=== PATIENT | female | born 1970 | race Caucasian/White ===

== ENCOUNTER 2018-08-17 06:07 | Emergency (ER) | payer MEDICAID ==
[~2018-08-17] VITALS: Ht 170.2 cm; Wt 49.9 kg
[2018-08-17 06:09] VITALS: BP 120/73
--- NOTE | 2018-08-17 06:09 | NUR ---
ED Nurse Note: Pt was BIBA from home, c/o short of breath with sever dry cough since last night. According to EMS, they gived one dose of Albuteral breathing treatment on the way coming to ED. Pt is A/O X 4. Bp 118/65, Hr 105, O2 sat 94% on room air, waiting for orders.
[2018-08-17 06:41] VITALS: BP 118/65
--- NOTE | 2018-08-17 06:50 | NUR ---
ED Nurse Note: EKG done at bed side. waiting for X-ray. Pt is A/O X4. VSS.
--- NOTE | 2018-08-17 07:35 | NUR ---
ED Nurse Note: Blood collected and sent to Lab.
[2018-08-17 07:48] LABS: HEMATOCRIT 46.8 % (37.0-47.0); HEMOGLOBIN 16.8 G/DL (12.0-16.0); MEAN CORPUSCULAR VOLUME 86 FL (80-99); PLATELET COUNT 166 K/UL (150-450); RED BLOOD COUNT 5.44 M/UL (4.20-5.40); RED CELL DISTRIBUTION WIDTH 11.3 % (11.6-14.8); WHITE BLOOD COUNT 6.4 K/UL (4.8-10.8)
[2018-08-17 08:01] LABS: ANION GAP 11 mmol/L (5-15); BLOOD UREA NITROGEN 10 mg/dL (7-18); CALCIUM 9.8 MG/DL (8.5-10.1); CARBON DIOXIDE 30 MMOL/L (21-32); CHLORIDE 105 MMOL/L (98-107); CREATININE 0.9 MG/DL (0.55-1.30); POTASSIUM 3.6 MMOL/L (3.5-5.1); SODIUM 145 MMOL/L (136-145)
--- NOTE | 2018-08-17 08:06 | NUR ---
HAND-OFF: Report given to Darlyn/RN for continue care. Pt is A/OX4. VSS.
--- NOTE | 2018-08-17 08:07 | NUR ---
ED Nurse Note: resumed care pt sleeping vss will monitor.
[2018-08-17 08:14] LABS: ALANINE AMINOTRANSFERASE 23 U/L (12-78); ALBUMIN 5.1 G/DL (3.4-5.0); ALBUMIN/GLOBULIN RATIO 1.8 (1.0-2.7); ALKALINE PHOSPHATASE 99 U/L (46-116); ASPARTATE AMINO TRANSFERASE 17 U/L (15-37); BILIRUBIN,TOTAL 0.6 MG/DL (0.2-1.0); CKMB 1.2 NG/ML (0.0-3.6); CREATINE KINASE 98 U/L (26-308)
--- NOTE | 2018-08-17 08:30 | Diagnostic Imaging Report ---
Indication: Shortness of breath, cough Technique: 2 portable frontal views were obtained of the chest (a second view is obtained to include the right costophrenic sulcus) Comparison: None Findings: Asymmetric haziness of the midlungs bilaterally which is likely artifactual related to attenuation from overlying soft tissue/breast. There is mild hyperinflation. There is no definite focal airspace consolidation. There is equivocal minimal blunting of the right costophrenic sulcus. This may be related to artifact however the possibility of a trace effusion not excluded. No evidence of pneumothorax. A rounded density projects over the left midlung on one of the submitted views which may represent a nipple shadow. No acute osseous abnormality. Impression: * Mild hyperinflation, nonspecific. Small airway disease (bronchitis) or asthma can be considered in the appropriate clinical setting. * No definite focal airspace consolidation. * Question minimal blunting of the right costophrenic sulcus, artifact versus trace effusion. * Rounded density projecting over the left mid lung on one of the submitted views which may be related to a nipple shadow. Follow-up repeat exam with nipple markers can be obtained for more definitive assessment.
[2018-08-17] MEDS ORDERED: ALBUTEROL SULF8.5 GM INH (08:42)
[2018-08-17] MEDS ORDERED: ZITHROMAX250 MG ORAL (08:42)
[2018-08-17] MEDS ORDERED: FLOVENT2 PUFF1 INH (08:43)
--- NOTE | 2018-08-17 09:03 | Emergency Room Report ---
History of Present Illness General Chief Complaint: Upper Respiratory Illness Source: Patient Present Illness HPI Patient presents to the emergency department today complaining of cough and shortness of breath. Patient states that she began to feel short of breath last night associate with a cough and this morning got severe and she had a call 911. Paramedics arrived and gave her albuterol nebulizer and she seemed to improve on arrival she was feeling much better. She states that she is never had asthma before denies any fever nausea vomiting diarrhea chills. . She denies any leg pain leg swelling. No history of pulmonary embolism. Denies any alcohol drug or tobacco use. Symptoms noted to be severe. Which is why she called 911. No other modifying factors. No other associated signs and symptoms. No other complaints were noted. Allergies: Coded Allergies: No Known Allergies (Unverified , 08/17/18) Patient History Past Medical History: none Past Surgical History: none Pertinent Family History: none Social History: Denies: smoking, alcohol use, drug use Reviewed Nursing Documentation: PMH: Agreed; PSxH: Agreed Nursing Documentation-PMH Past Medical History: No Stated History Review of Systems All Other Systems: negative except mentioned in HPI Physical Exam Vital Signs Date Time Temp Pulse Resp B/P (MAP) Pulse Ox O2 Delivery O2 Flow Rate FiO2 08/17/18 06:06 98.2 106 18 121/75 (90) 91 Room Air Sp02 EP Interpretation: reviewed, normal General Appearance: normal inspection, well appearing, no apparent distress, alert Head: atraumatic Eyes: bilateral eye normal inspection ENT: normal ENT inspection, hearing grossly normal, normal voice Neck: normal inspection, full range of motion, supple, no bony tend Respiratory: normal inspection, lungs clear, normal breath sounds, no respiratory distress, no retraction, no wheezing Cardiovascular #1: regular rate, rhythm, no edema Gastrointestinal: normal inspection, normal bowel sounds, non tender, soft, no guarding, no hernia Genitourinary: no CVA tenderness Musculoskeletal: normal inspection, back normal, normal range of motion Neurologic: normal inspection, alert, responsive, speech normal Psychiatric: normal inspection, judgement/insight normal, mood/affect normal Skin: normal inspection, normal color, no rash Medical Decision Making Diagnostic Impression: Primary Impression: Bronchitis Additional Impression: Respiratory distress ER Course Patient presents emergency department today complaint cough congestion shortness of breath. Differential considerations include pneumonia bronchitis asthma COPD just to name a few. Given the severity of the patient's presentation I felt this is a highly complex patient. This patient required extensive workup. Because patient is never had episodes now had a severe attack requiring business development director transport laboratory work-up was obtained to rule out pulmonary embolism or coronary artery disease. Laboratory work-up was noted to be negative. Patient was feeling much better. Given the negative work -up I feel the patient be discharged home. Patient was given prescription for antibiotics as patient's chest x-ray shows evidence of right-sided costophrenic angle blunting. Patient was also given albuterol and inhaled steroid. Patient is advised to follow up with primary doctor in 2-3 days and return the emergency room for any worsening symptoms and as needed. Labs Test 08/17/18 06:22 White Blood Count 6.4 K/UL (4.8-10.8) Red Blood Count 5.44 M/UL (4.20-5.40) Hemoglobin 16.8 G/DL (12.0-16.0) Hematocrit 46.8 % (37.0-47.0) Mean Corpuscular Volume 86 FL (80-99) Mean Corpuscular Hemoglobin 30.9 PG (27.0-31.0) Mean Corpuscular Hemoglobin Concent 35.9 G/DL (32.0-36.0) Red Cell Distribution Width 11.3 % (11.6-14.8) Platelet Count 166 K/UL (150-450) Mean Platelet Volume 8.1 FL (6.5-10.1) Neutrophils (%) (Auto) % (45.0-75.0) Lymphocytes (%) (Auto) % (20.0-45.0) Monocytes (%) (Auto) % (1.0-10.0) Eosinophils (%) (Auto) % (0.0-3.0) Basophils (%) (Auto) % (0.0-2.0) D-Dimer 0.42 mg/L FEU (0.00-0.49) Sodium Level 145 MMOL/L (136-145) Potassium Level 3.6 MMOL/L (3.5-5.1) Chloride Level 105 MMOL/L (98-107) Carbon Dioxide Level 30 MMOL/L (21-32) Anion Gap 11 mmol/L (5-15) Blood Urea Nitrogen 10 mg/dL (7-18) Creatinine 0.9 MG/DL (0.55-1.30) Estimat Glomerular Filtration Rate > 60 mL/min (>60) Glucose Level 134 MG/DL (74-106) Calcium Level 9.8 MG/DL (8.5-10.1) Total Bilirubin 0.6 MG/DL (0.2-1.0) Aspartate Amino Transf (AST/SGOT) 17 U/L (15-37) Alanine Aminotransferase (ALT/SGPT) 23 U/L (12-78) Alkaline Phosphatase 99 U/L (46-116) Total Creatine Kinase 98 U/L (26-308) Creatine Kinase MB 1.2 NG/ML (0.0-3.6) Creatine Kinase MB Relative Index 1.2 Troponin I 0.000 ng/mL (0.000-0.056) Total Protein 7.9 G/DL (6.4-8.2) Albumin 5.1 G/DL (3.4-5.0) Globulin 2.8 g/dL Albumin/Globulin Ratio 1.8 (1.0-2.7) EKG Diagnostic Results Rate: normal Rhythm: NSR ST Segments: no acute changes Rhythm Strip Diag. Results EP Interpretation: yes Rate: 100 Rhythm: NSR, no PVC's, no ectopy Chest X-Ray Diagnostic Results Chest X-Ray Diagnostic Results : Chest X-Ray Ordered: Yes # of Views/Limited/Complete: 1 View Indication: Shortness of Breath Interpretation: no consolidation, no effusion, no pneumothorax, no acute cardiopulmonary disease, other - Right costophrenic angle blunting Impression: Other - Right costophrenic angle blunting Last Vital Signs Date Time Temp Pulse Resp B/P (MAP) Pulse Ox O2 Delivery O2 Flow Rate FiO2 08/17/18 06:41 98.2 98 18 118/65 96 Room Air Status: improved Disposition: HOME, SELF-CARE Condition: Stable Scripts Fluticasone Propionate (Flovent Hfa) 10.6 Gm Aer.w.adap 2 PUFFS INH BID for 14 Days, #1 EA 0 Refills Prov: Justus Brown MD 08/17/18 Albuterol Sulfate* (ALBUTEROL SULFATE MDI*) 8.5 Gm Hfa.aer.ad 2 PUFF INH Q4H PRN for cough/wheezing, #1 EA 0 Refills Prov: Justus Brown MD 08/17/18 Azithromycin* (ZITHROMAX*) 250 Mg Tablet 250 MG ORAL DAILY, #6 TAB 0 Refills Take two tables once daily for 1 day, then one tablet once daily for 4 days. Prov: Justus Brown MD 08/17/18 Patient Instructions: Bronchospasm, Adult, Acute Bronchitis Justus Brown MD Aug 17, 2018 09:03
[2018-08-17 09:20] VITALS: BP 103/62
--- NOTE | 2018-08-17 09:26 | NUR ---
ED Nurse Note: Pt cleared by health care Provider for discharge. DC instructions/prescription was given and explained to pt and verbalized understanding of teachings. All medical deviecs such as ID band removed. Pt is AAO x4, ambulatory and left with all personal belongings.
--- NOTE | 2018-08-17 11:33 | Cardiology Report ---
APPROVED REPORT EKG Measurement Heart [id number] Sinus tachycardia Right atrial enlargement Borderline ECG
== END 2018-08-17 09:27 | disposition home or self-care (01) ==
LOC: EDBD 06:07 → EMR 06:27
DX: J20.9 Acute bronchitis, unspecified (principal); R06.03 Acute respiratory distress
CPT/HCPCS: 36415; 71045; 80053; 82550; 82553; 84484; 85007; 85025; 85379; 93005; 99284

== ENCOUNTER 2018-12-12 06:40 | Emergency (ER) | payer MEDICAID ==
[~2018-12-12] VITALS: Ht 162.6 cm; Wt 49.9 kg
[~2018-12-12 06:40] MED LIST: ALBUTEROL SULF8.5 GM INH; FLOVENT2 PUFF1 INH; ZITHROMAX250 MG ORAL
--- NOTE | 2018-12-12 06:49 | Emergency Room Report ---
History of Present Illness General Chief Complaint: To Be Triaged Source: Patient Present Illness HPI 47yo F with no major medical problems c/o dry cough, rhinorrhea, and feeling warm/subjective fever that started just last night. Denies N/V, CP, hemoptysis , leg pain or swelling, urinary or vaginal symptoms. However, patient does report a sensation of SOB when she coughs, and requests antibiotics. She tried an inhaler without relief. Allergies: Coded Allergies: No Known Allergies (Unverified , 08/17/18) Patient History Past Medical History: see triage record Social History: Denies: smoking, alcohol use, drug use Reviewed Nursing Documentation: PMH: Agreed; PSxH: Agreed Review of Systems All Other Systems: negative except mentioned in HPI Physical Exam Sp02 EP Interpretation: reviewed, normal General Appearance: no apparent distress, alert, non-toxic Head: normocephalic Eyes: bilateral eye normal inspection, bilateral eye PERRL, bilateral eye EOMI ENT: normal ENT inspection, hearing grossly normal, normal pharynx, no angioedema, normal voice, TMs + canals normal, uvula midline, moist mucus membranes, nasal congestion, other - frontal and maxillary sinuses with no bogginess/erythema/tenderness to percussion Neck: normal inspection, full range of motion, supple, supple/symm/no masses Respiratory: chest non-tender, lungs clear, normal breath sounds, chest symmetrical, palpation of chest normal Cardiovascular #1: normal peripheral pulses, regular rate, rhythm Cardiovascular #2: 2+ radial (R), 2+ radial (L) Gastrointestinal: normal inspection, non tender, soft, no mass, no guarding, no rebound Rectal: deferred Genitourinary: normal inspection, no CVA tenderness Musculoskeletal: back normal, gait/station normal, normal range of motion, non- tender, no calf tenderness Neurologic: alert, responsive, health and safety trainer III-XII nml as tested, motor strength/tone normal, sensory intact, speech normal Psychiatric: judgement/insight normal, memory normal, mood/affect normal Lymphatic: no adenopathy Medical Decision Making Diagnostic Impression: Primary Impression: URI (upper respiratory infection) ER Course Patient was seen for similar complaints in July of this year, diagnosed with bronchitis. Today lung exam is normal. Symptoms and exam findings consistent with bronchitis vs. viral URI. Will dc with symptomatic relief treatments, and recommend PMD f/u in 3 days for reassessment to ensure no progression into pneumonia, bacterial sinusitis, or other serious bacterial infection. Will give new rx for albuterol prn, as well as sudafed prn. Suspect cough worse at night 2/2 post-nasal drip. Chest X-Ray Diagnostic Results Chest X-Ray Diagnostic Results : Chest X-Ray Ordered: Yes # of Views/Limited/Complete: 1 View Indication: Shortness of Breath EP Interpretation: Yes Interpretation: no consolidation, no effusion, no pneumothorax, no acute cardiopulmonary disease Impression: No acute disease Electronically Signed by: Bre Yee MD Disposition: HOME, SELF-CARE Condition: Stable Scripts Albuterol Sulfate* (ALBUTEROL SULFATE MDI*) 8.5 Gm Hfa.aer.ad 2 PUFF INH Q4H PRN for cough/wheezing, #1 EA 0 Refills Prov: BRE YEE M.D 12/12/18 Pseudoephedrine Hcl (SUDAFED 12 HOUR) 120 Mg Tablet.er 120 MG PO BID PRN for For Cough for 7 Days, #14 TAB Prov: BRE YEE M.D 12/12/18 BRE YEE M.D Dec 12, 2018 06:49
[2018-12-12 06:50] VITALS: BP 101/68
--- NOTE | 2018-12-12 06:50 | NUR ---
ED Nurse Note: Patient walked in to ER due to cough, runny nose and difficulty breathing since yesterday. As per patient, she feels pain on her throat everytime she coughs, used her inhaler but doesnt alleviate the symptoms. Alert and oriented, verbally responisve. No SOB. Breathing even and unlabored. Afebrile. VSS.
--- NOTE | 2018-12-12 07:03 | NUR ---
ED Nurse Note: Report given to Katie KEYS. Endorsed plan of care.
[2018-12-12] MEDS ORDERED: SUDAFED 12 HOU120 M1 PO (07:04)
[2018-12-12] MEDS ORDERED: ALBUTEROL SULF8.5 GM INH (07:04)
--- NOTE | 2018-12-12 07:05 | NUR ---
ED Nurse Note: Received report from MASSIMO Joseph.
--- NOTE | 2018-12-12 07:09 | NUR ---
ED Nurse Note: xray at bedside.
--- NOTE | 2018-12-12 07:20 | NUR ---
ER DISCHARGE NOTE: Patient is cleared to be discharged per ERMD, pt is aox4, on room air, with stable vital signs. pt was given dc and prescription instructions, pt was able to verbalize understanding, pt id band removed without complications. pt is able to ambulate with steady gait. pt took all belongings.
[2018-12-12 07:21] VITALS: BP 100/65
--- NOTE | 2018-12-12 11:26 | Diagnostic Imaging Report ---
Indication: Reason For Exam: SOB Technique: Single AP view of the chest. Comparison: Chest Radiograph dated 08/17/2018 Findings: The cardiomediastinal silhouette is within normal limits. The lungs are hyperinflated. There is no focal consolidation. As costophrenic angles are excluded from view, trace effusions or pneumothoraces cannot be excluded. Osseous structures demonstrate no acute abnormality. IMPRESSION: No airspace consolidation.
== END 2018-12-12 07:20 | disposition home or self-care (01) ==
LOC: EMR 06:57
DX: J06.9 Acute upper respiratory infection, unspecified (principal); R06.02 Shortness of breath
CPT/HCPCS: 71045; Z7502; 99283

== ENCOUNTER → 2019-06-12 | Emergency (ER) | payer MEDICAID ==
[~2019-06-12] VITALS: Ht 162.6 cm; Wt 59.0 kg
[~2019-06-12] MED LIST changes: +IBUPROFEN600 M1 ORAL; +NITROFURANTOIN100 M2 ORAL; +Omnipaque-300 100ml vial INJ PRN; +SUDAFED 12 HOU120 M1 PO
[2019-06-12 12:48] VITALS: BP 107/61
--- NOTE | 2019-06-12 12:48 | NUR ---
saline lock in place venous blood send to lab consent signed for ct scan
--- NOTE | 2019-06-12 12:59 | NUR ---
ED Nurse Note: US tech at bedside.
[2019-06-12 13:01] LABS: BASOPHILS % (AUTO) 0.8 % (0.0-2.0); HEMATOCRIT 42.7 % (37.0-47.0); HEMOGLOBIN 15.2 G/DL (12.0-16.0); LYMPHOCYTES % (AUTO) 21.4 % (20.0-45.0); MEAN CORPUSCULAR VOLUME 85 FL (80-99); MONOCYTES % (AUTO) 4.7 % (1.0-10.0); NEUTROPHILS % (AUTO) 73.1 % (45.0-75.0); PLATELET COUNT 167 K/UL (150-450); RED BLOOD COUNT 5.02 M/UL (4.20-5.40); RED CELL DISTRIBUTION WIDTH 10.7 % (11.6-14.8)
[2019-06-12 13:30] LABS: ANION GAP 9 mmol/L (5-15); BLOOD UREA NITROGEN 7 mg/dL (7-18); CALCIUM 9.6 MG/DL (8.5-10.1); CARBON DIOXIDE 29 MMOL/L (21-32); CHLORIDE 104 MMOL/L (98-107); CREATININE 0.7 MG/DL (0.55-1.30); POTASSIUM 3.7 MMOL/L (3.5-5.1); SODIUM 142 MMOL/L (136-145)
[2019-06-12 13:37] LABS: ALANINE AMINOTRANSFERASE 34 U/L (12-78); ALBUMIN 4.2 G/DL (3.4-5.0); ALBUMIN/GLOBULIN RATIO 1.3 (1.0-2.7); ALKALINE PHOSPHATASE 112 U/L (46-116); ASPARTATE AMINO TRANSFERASE 19 U/L (15-37); BILIRUBIN,TOTAL 0.8 MG/DL (0.2-1.0)
[2019-06-12 14:09] LABS: APPEARANCE,URINE CLEAR; BILIRUBIN, URINE NEGATIVE (NEGATIVE); COLOR,URINE PALE YELLOW; GLUCOSE, URINE (UA) NEGATIVE (NEGATIVE); KETONES,URINE NEGATIVE (NEGATIVE); LEUKOCYTE ESTERASE ,URINE NEGATIVE (NEGATIVE); NITRITE,URINE NEGATIVE (NEGATIVE); PH,URINE 6 (4.5-8.0); PROTEIN,URINE NEGATIVE (NEGATIVE); UROBILINOGEN,URINE NORMAL MG/DL (0.0-1.0)
--- NOTE | 2019-06-12 14:16 | Diagnostic Imaging Report ---
Indication: Abdominal pain Technique: Patel-scale and duplex images of the upper abdomen were obtained. Graded compression images of the right lower quadrant Comparison: none Findings: Gallbladder demonstrates multiple wall adherent polyps, the largest measuring approximately 7 x 6 mm in diameter, the remainder but smaller. There may be one or more wall adherent calculi as well. Sonographic Hanna's sign is negative. Common bile duct measures 4 mm in diameter. No intrahepatic biliary ductal dilatation. Liver demonstrates normal echogenicity. There is a cyst in the left hepatic lobe and measures 3.2 cm. Portal vein and hepatic veins are patent. Pancreas is unremarkable. Spleen is unremarkable. Left kidney measures 9.4 cm in length. Right kidney measures 10.1 cm length. Both kidneys demonstrate normal echogenicity. There is no hydronephrosis. No focal abnormality . Non-aneurysmal abdominal aorta . Graded compression images of the right lower quadrant do not demonstrate the appendix, either normal or abnormal. Incidentally noted is a 2.9 cm right ovarian cyst. Impression: Multiple gallbladder polyps. As largest is over 6 mm in diameter, recommend short interval follow-up sonography in 6 months and then yearly for 5 years. If patient has history of sclerosing cholangitis then surgical consult should be considered There may be one or more wall adherent gallstones as well. Negative for dilated ducts or secondary signs of acute cholecystitis Left lobe liver cyst Benign-appearing right ovarian cyst Nonvisualized appendix. Therefore nondiagnostic for presence or absence of acute appendicitis
--- NOTE | 2019-06-12 15:03 | Emergency Room Report ---
History of Present Illness General Chief Complaint: Abdominal Pain Source: Patient Present Illness HPI 48-year-old female with no symptom past medical history here complaining of few days of right lower quadrant to suprapubic abdominal pain with urinary frequency and urgency. Denies hematuria, dysuria, fever and chills, flank pain , diffuse abdominal pain. Denies nausea vomiting, diarrhea, constipation. Denies fever and chills, cough and congestion, shortness of breath. Reports that many years ago she had a hysterectomy however does not recall whether it was a total hysterectomy or not. Patient reports that she is not sexually active and denies any vaginal discharge. Denies at this time. Has not taken medication for symptom relief. Allergies: Coded Allergies: No Known Allergies (Unverified , 08/17/18) COVID-19 Screening Contact w/high risk pt: No Recent Travel to affected area: No Experienced COVID-19 symptoms?: No Patient History Past Medical History: see triage record Past Surgical History: none Pertinent Family History: none Last Menstrual Period: hysterectomy Now: No Immunizations: UTD Reviewed Nursing Documentation: PMH: Agreed; PSxH: Agreed Nursing Documentation-PMH Past Medical History: No Stated History Review of Systems All Other Systems: negative except mentioned in HPI Physical Exam Vital Signs Date Time Temp Pulse Resp B/P (MAP) Pulse Ox O2 Delivery O2 Flow Rate FiO2 06/12/19 12:11 98.4 97 20 107/61 (76) 100 Room Air Sp02 EP Interpretation: reviewed, normal General Appearance: no apparent distress, alert, GCS 15, non-toxic Head: normocephalic, atraumatic ENT: hearing grossly normal, normal pharynx, no angioedema, normal voice Neck: full range of motion, supple/symm/no masses Respiratory: chest non-tender, lungs clear, normal breath sounds, speaking full sentences Cardiovascular #1: regular rate, rhythm, no edema Gastrointestinal: normal bowel sounds, non tender, soft, no mass, no organomegaly, non-distended, no guarding, no hernia, no rebound Rectal: deferred Genitourinary: no CVA tenderness Musculoskeletal: back normal, digits/nails normal, no calf tenderness Neurologic: alert, motor strength/tone normal, oriented x3, sensory intact, responsive, speech normal Psychiatric: judgement/insight normal, memory normal, mood/affect normal, no suicidal/homicidal ideation Skin: no rash Lymphatic: no adenopathy Medical Decision Making PA Attestation All my diagnosis and treatment plans were reviewed ad discussed with my supervising physician Dr. Washington Diagnostic Impression: Primary Impression: Ovarian cyst Additional Impressions: Cholelithiasis Liver cyst Urinary frequency Diverticulosis ER Course 48-year-old female with no symptom past medical history here complaining of few days of right lower quadrant to suprapubic abdominal pain with urinary frequency and urgency. Denies hematuria, dysuria, fever and chills, flank pain , diffuse abdominal pain. Denies nausea vomiting, diarrhea, constipation. Denies fever and chills, cough and congestion, shortness of breath. Reports that many years ago she had a hysterectomy however does not recall whether it was a total hysterectomy or not. Patient reports that she is not sexually active and denies any vaginal discharge. Denies at this time. Has not taken medication for symptom relief. Ddx considered but are not limited to: appendicitis, cholecystis, gastritis, gastroenteritis, UTI, pyelonephritis, SBO, diverticulitis, influenza with GI manifestation, NH, complication with , ovarian cyst Vital signs: are WNL, pt. is afebrile H&PE are most consistent with: Right ovarian cyst, cholelithiasis without cholecystitis, liver cyst, urinary frequency ORDERS: abdominal CT, abdominal pain set, abdominal US, Macrobid, ibuprofen ED INTERVENTIONS: None required at this time. DISCHARGE: At this time pt. is stable for d/c to home. Will provide printed patient care instructions, and any necessary prescriptions. Care plan and follow up instructions have been discussed with the patient prior to discharge. Patient to follow-up with distilling department supervisor regarding ovarian cyst, follow-up primary doctor for referral to general surgery for gallstones if she is symptomatic. Increase oral hydration, worsening symptoms return to the emergency room. Patient was treated for urinary frequency with antibiotics due to possible UTI as patient reported that urinary frequency a lot however UA was clear. Pending urine culture CT/MRI/US Diagnostic Results CT/MRI/US Diagnostic Results #1: Imaging Test Ordered: Abdominal ultrasound Impression Liver cyst, ovarian cyst, cholelithiasis without cholecystitis CT/MRI/US Diagnostic Results #2: Imaging Test Ordered: CT abdomen pelvis with contrast Impression Liver cyst, ovarian cyst, cholelithiasis without cholecystitis, diverticulosis without diverticulitis Last Vital Signs Date Time Temp Pulse Resp B/P (MAP) Pulse Ox O2 Delivery O2 Flow Rate FiO2 06/12/19 12:48 78 18 06/12/19 12:48 98.4 107/61 100 Room Air Disposition: HOME, SELF-CARE Condition: Stable Scripts Nitrofurantoin Monohyd/M-Cryst* (MACROBID 100 MG*) 100 Mg Capsule 100 MG ORAL EVERY 12 HOURS for 7 Days, #14 CAP Prov: Any Whitehead 06/12/19 Ibuprofen* (MOTRIN*) 600 Mg Tablet 600 MG ORAL Q8H PRN for FOR PAIN, #30 TAB 0 Refills Prov: Any Whitehead 06/12/19 Referrals: NON PHYSICIAN (PCP) Patient Instructions: Cholelithiasis, [id number], Ovarian Cyst, [id number] , Urinary Frequency Additional Instructions: Follow-up with your primary doctor for referral to distilling department supervisor as of general surgeon for your gallstones. If worsening symptoms return to emergency room Any Whitehead Jun 12, 2019 15:03
--- NOTE | 2019-06-12 15:14 | Diagnostic Imaging Report ---
Clinical Indication: Abdominal pain Technique: No oral contrast utilized, per emergency room physician request IV administration nonionic contrast. Venous phase spiral acquisition obtained through the abdomen and pelvis. Multiplanar reconstructions were generated. Total dose length product 218 mGycm. CTDIvol(s) 4 mGy. Dose reduction achieved using automated exposure control Comparison: Reference made to abdominal sonogram performed immediately prior. Findings: Lack of enteric contrast limits assessment of the GI tract. The appendix is only equivocally visualized, but no findings to suggest acute appendicitis are evident. A few small colonic diverticula are evident. No evidence of diverticulitis. A small amount of high attenuation fluid is seen within the pelvis. No free intraperitoneal gas. The proximal colon is nondistended but is somewhat fluid-filled. The distal esophagus, stomach, duodenum are unremarkable. The gallbladder demonstrates multiple mural nodules, consistent with polyps described on recent ultrasound. At least one of these is slightly hyperattenuating so could represent a small calculus. The liver demonstrates a 2.2 cm cyst in segment 2. No biliary ductal dilatation. The pancreas, spleen, adrenals, right kidney are unremarkable. The left kidney demonstrates a few subcentimeter low-attenuation lesions which are too small to characterize. No retroperitoneal or mesenteric mass or adenopathy. The uterus is absent. The right ovary demonstrates a 1.9 cm cyst which appears benign. The included lung bases are clear. The bones are unremarkable. Impression: Limited assessment of the GI tract, due to lack of enteric contrast administration Small amount of high attenuation fluid within the pelvis, presumably representing lateral bloody fluid. Likely from recent cyst rupture with hemorrhage Fluid-filled proximal colon, could indicate diarrheal illness Only equivocal visualization of the appendix but no findings to suggest acute appendicitis Gallbladder polyps plus/minus one or more wall adherent calculi. Please refer to separate sonogram report for suggested workup of these Colonic diverticulosis. No evidence of diverticulitis Other findings as noted, including left lobe liver cyst, probable small left renal cyst, prior hysterectomy, benign-appearing right ovarian cyst The CT scanner at [facility] is accredited by the [employer] and the scans are performed using protocols designed to limit radiation exposure to as low as reasonably achievable to attain images of sufficient resolution adequate for diagnostic evaluation.
== END | disposition home or self-care (01) ==
LOC: EMR 12:30
DX: N83.201 Unspecified ovarian cyst, right side (principal); K76.89 Other specified diseases of liver; K80.20 Calculus of gallbladder without cholecystitis without obstruction; K57.90 Diverticulosis of intestine, part unspecified, without perforation or abscess without bleeding
CPT/HCPCS: 36415; 74177; 76700; 80053; 81003; 83690; 85025; Q9967; Z7502; 99284